=== PATIENT | female | born 1990 ===

== ENCOUNTER 2018-07-09 12:55 | Emergency (ER) | payer MEDICAID, OTHER ==
[2018-07-09 12:55] VITALS: BMI 27.1
[2018-07-09 13:17] VITALS: RESP 17
[2018-07-09] MEDS ORDERED: Tetanus Immune Globulin 250 Units Inj IM ONE (14:56)
--- NOTE | 2018-07-09 15:05 | C.PDOC ---
History Of Present Illness <Matthew Rice - Last Filed: 07/09/18 16:57> <Sudhir Acosta - Last Filed: 07/09/18 17:53> Patient is a 28 year female with prior history of ectopic who presents for 5 day history of constipation that started while she was traveling in the . [place] until yesterday. She states she usually have normal bowel movements daily. She started experienced lower abdominal bloating and pressure that is worse when she strains trying to pass a bowel movement. She tried drinking coffee, eating cheese and smoking cigarettes which usually helps her with constipation. She also states she had 2 episodes of nonbloody nonbilious vomiting yesterday and this morning. She states she has a good appetite. She states she usually eats take out food and fast food, and has been eating a lot of takeout in the past week. She states she had a subjective fever 2 days ago, for which she took Tylenol OTC. She states her boyfriend who also traveled with her is not experiencing similar symptoms. She denies headache, shortness of breath, chest pain, palpitations, urinary frequency, dysuria, lower extremity swelling. She also reports that she stepped on a piece of wood last week while [place] the [place]. Now requesting a tetanus injection. PMD: none PMH: none PSH: ectopic , D&C x2 Social history: Smokes 3 cigarettes/day. Denies alcohol or drug use. Meds: none Allergies: NKDA (Matthew Rice) History Per: Patient History/Exam Limitations: no limitations Onset/Duration Of Symptoms: Days (5 days) Current Symptoms Are (Timing): Still Present Context: Travel Severity: Moderate Quality Of Discomfort: Pressure (lower abdomen) Associated Symptoms: Vomiting, Constipation. denies: Loss Of Appetite, Back Pain, Chest Pain, Urinary Symptoms Exacerbating Factors: Other (straining) Alleviating Factors: None Last Bowel Movement: Days Ago Recent travel outside of the [place]: Yes <Matthew Rice - Last Filed: 07/09/18 16:57> <Sudhir Acosta - Last Filed: 07/09/18 17:53> Time Seen by Provider: 07/09/18 13:42 Chief Complaint (Nursing): Abdominal Pain Past Medical History - Medical History PMH: Anxiety, Gastritis Denies: Chronic Kidney Disease Surgical History: Family History: States: Unknown Family Hx, Diabetes - Social History Hx Tobacco Use: No Hx Alcohol Use: No Hx Substance Use: No - Immunization History Hx Tetanus Toxoid Vaccination: No Hx Influenza Vaccination: No Hx Pneumococcal Vaccination: No <Matthew Rice - Last Filed: 07/09/18 16:57> Vital Signs: Last Vital Signs Temp 98.6 F 07/09/18 13:13 Pulse 66 07/09/18 16:25 Resp 17 07/09/18 16:25 BP 104/72 07/09/18 16:25 Pulse Ox 99 07/09/18 17:03 - [facility] INCISE BARTHOLIN'S GLAND (10/21/14) INJECT/INFUSE NEC (01/30/14) Review Of Systems Constitutional: Positive for: Fever (subjective fever 2 days ago) Cardiovascular: Negative for: Chest Pain, Palpitations Respiratory: Negative for: Cough, Shortness of Breath Gastrointestinal: Positive for: Vomiting (2 episodes ), Abdominal Pain (lower abdominal pressure), Constipation Genitourinary: Negative for: Dysuria, Frequency, Incontinence, Hematuria Musculoskeletal: Positive for: Foot Pain Neurological: Negative for: Incoordination, Confusion, Altered Mental Status, Headache Psych: Negative for: Anxiety, Depression <Matthew Rice - Last Filed: 07/09/18 16:57> Physical Exam - Physical Exam Appears: Well, Non-toxic, No Acute Distress Skin: Normal Color, Warm, Dry Head: Atraumatic, Normacephalic Eye(s): bilateral: Normal Inspection, PERRL, EOMI Oral Mucosa: Moist Neck: Normal Cardiovascular: Rhythm Regular, No Friction Rub, No Murmur Respiratory: Normal Breath Sounds, No Accessory Muscle Use, No Rales, No Rhonchi , No Wheezing Gastrointestinal/Abdominal: Bowel Sounds, Soft, No Tenderness, No Mass, No Distention, No Guarding, No Rebound, No Hernia, No Ascites Rectal: Deferred Back: No CVA Tenderness, No Vertebral Tenderness, No Paraspinal Tenderness Extremity: Normal ROM, No Tenderness, No Pedal Edema, Other (Right foot: plantar aspect of right foot has 1cm area of slight tenderness, nonerythematous , nonedematous, no lymphangitis noted. ) Neurological/Psych: Oriented x3, Normal Speech <Matthew Rice - Last Filed: 07/09/18 16:57> ED Course And Treatment O2 Sat by Pulse Oximetry: 99 - Other Rad Right foot X-Ray: Interpreted by Me (Dr. Acosta), Viewed By Me Interpretation: No soft tissue changes, no evidence of foreign body Obstructive Series X-Ray: Interpreted by Me, Viewed By Me Interpretation: Stool in rectum <Matthew Rice - Last Filed: 07/09/18 16:57> Medical Decision Making <Matthew Rice - Last Filed: 07/09/18 16:57> <Sudhir Acosta - Last Filed: 07/09/18 17:53> Medical Decision Making: constipation - patient abd. soft, nt, nd, (+) bs, patient went to bathroom and evacuated only slightly. Patient held enema for 6 minutes only. patient foot xray prel. no fb noted. Patient received td. Nothing to suture on foot exam, no cellulitic component. (Sudhir Acosta) Disposition <Matthew Rice - Last Filed: 07/09/18 16:57> Counseled Patient/Family Regarding: Studies Performed, Diagnosis, Need For Followup, Rx Given - Disposition Disposition Time: 17:51 <Sudhir Acosta - Last Filed: 07/09/18 17:53> - Disposition Referrals: [facility] [place] [Outside] Disposition: HOME/ ROUTINE Condition: STABLE Additional Instructions: follow up with medical clinic within 2 days call to make an appointment take medications as prescribed return to ER if symptoms worsens or progress Prescriptions: Polyethylene Glycol 3350 [Miralax] 17 g PO DAILY PRN #10 packet PRN Reason: Constipation Instructions: Constipation in Adults, Wound Care (DC), Skin Abrasions Forms: [facility] (Greek), General Discharge Instructions, Work Excuse - Clinical Impression Clinical Impression: Constipation, Abrasion
[2018-07-09] MEDS ORDERED: Bisacodyl 5mg EC Tab PO ONE ×2 (15:18)
[2018-07-09] MEDS ORDERED: Tdap Vaccine 0.5 ml Vial (10-64 yrs) IM ONE ×2 (15:19→16:00)
--- NOTE | 2018-07-09 17:43 | RAD ---
Date of service: 07/09/2018 PROCEDURE: Right Foot Radiographs. HISTORY: foot pain COMPARISON: None. FINDINGS: BONES: Normal. No fracture. JOINTS: Normal. SOFT TISSUES: Normal. OTHER FINDINGS: None. IMPRESSION: Normal right foot radiographs.
--- NOTE | 2018-07-09 17:47 | RAD ---
Date of service: 07/09/2018 PROCEDURE: Radiographs of the chest and abdomen (obstructive series) HISTORY: constipation COMPARISON: No prior. TECHNIQUE: AP radiograph of the chest, with upright and supine radiographs of the abdomen. FINDINGS: CHEST: Lungs: Clear. Cardiovascular: Normal size heart. No pulmonary vascular congestion. Pleura: No pleural fluid. No pneumothorax. Other findings: None. ABDOMEN AND PELVIS: Bowel: Unremarkable bowel gas pattern. No evidence of mechanical obstruction. Free air: None. Bones: Unremarkable. Other findings: None. IMPRESSION: Unremarkable radiographs of chest and abdomen. No evidence of mechanical bowel obstruction.
[2018-07-09 18:28] VITALS: BP 107/73; PULSE 72; TEMP 98.1; O2SAT 98
== END 2018-07-09 18:26 | disposition home or self-care (01) ==
LOC: C.ER 12:55
DX: K59.00 Constipation, unspecified (principal); S90.811A Abrasion, right foot, initial encounter; W22.8XXA Striking against or struck by other objects, initial encounter; F17.210 Nicotine dependence, cigarettes, uncomplicated; Z23 Encounter for immunization